=== PATIENT | male | born 1960 | race Caucasian/White ===

== ENCOUNTER 2019-01-17 16:16 | Inpatient (IN) | payer MEDICARE, MEDICAID ==
[~2019-01-17] VITALS: Ht 182.9 cm; Wt 62.8 kg
[~2019-01-17 16:16] MED LIST: ASPI-1393 PO; LISI10TA5 PO; METF-414 PO; RIVA10TA PO
[2019-01-17] MEDS ORDERED: SODIUM CHLORIDE 0.9% 1,000 ML IV ONE (16:41)
[2019-01-17 17:48] LABS: BASOPHILS % 1.2 % (0.0-2.0); EOSINOPHILS % 0.7 % (0.0-5.0); HEMATOCRIT. 31.8 % (42.0-52.0); MEAN CORPUSCULAR HEMOGLOBIN 26.3 pg (28.0-32.0); MEAN CORPUSCULAR VOLUME 83.4 fL (80.0-94.0); MEAN PLATELET VOLUME 8.5 fl (7.4-10.4); MONOCYTES % 9.9 % (2.0-8.0); NEUTROPHILS % 67.2 % (40.0-76.0); PLATELET 237 x1000/uL (130-400); RED BLOOD CELL COUNT 3.82 mill/uL (4.7-6.1); RED CELL DISTRIBUTION WIDTH 16.7 % (11.6-14.6)
[2019-01-17 17:53] LABS: CHLORIDE 103 mEq/L (98-107)
[2019-01-17 17:55] LABS: INR 1.3; PROTHROMBIN TIME 12.7 sec (9.6-11.0)
[2019-01-17] MEDS ORDERED: LORAZEPAM 1MG TABLET PO ONE (18:30)
[2019-01-17 19:03] LABS: CLARITY URINE CLEAR (CLEAR); COLOR URINE DARK YELLOW (YELLOW); KETONES URINE TRACE (NEGATIVE); LEUKOCYTE ESTERASE URINE NEGATIVE (NEGATIVE); NITRITE URINE NEGATIVE (NEGATIVE); OCCULT BLOOD URINE NEGATIVE (NEGATIVE); PH URINE 5.5 (4.5-8.0); PROTEIN URINE 2+ (NEGATIVE); SPECIFIC GRAVITY URINE 1.032 (1.005-1.030)
[2019-01-17 20:30] VITALS: BP 135/72
[2019-01-17] MEDS ORDERED: DOCUSATE SODIUM 100MG CAPSULE PO PRN (21:00)
[2019-01-17] MEDS ORDERED: LORAZEPAM 0.5MG TABLET PO PRN (21:00)
[2019-01-17] MEDS ORDERED: IPRATROPIUM/ALBUTEROL 0.5-3(2.5)MG/3ML NEB HHN PRN (21:00)
[2019-01-17] MEDS ORDERED: CLONIDINE 0.1MG TABLET PO PRN (21:00)
[2019-01-17] MEDS ORDERED: HYDROCODONE/ACETAMINOPHEN 5/325MG TABLET PO PRN (21:00)
[2019-01-17] MEDS: ONDANSETRON HCL 4MG/2ML INJ IV PRN (21:32)
[2019-01-17] MEDS ORDERED: DEXTROSE 50% WATER 50ML SYRINGE IV PRN (22:30)
[2019-01-17] MEDS ORDERED: CARV3.1242 PO (23:33)
[2019-01-18] VITALS: BP 104/65
[2019-01-18] MEDS: ACETAMINOPHEN 325MG TABLET PO PRN ×2 (00:23→19:04)
[2019-01-18 04:00] VITALS: BP_SYST 100; BP_SYST 104; BP_SYST 93; BP_DIAS 50; BP_DIAS 51; BP_DIAS 52
[2019-01-18 04:58] LABS: *AMPHETAMINES SCREEN URINE NEGATIVE (NEGATIVE); *BARBITURATES SCREEN URINE NEGATIVE (NEGATIVE); *BENZODIAZEPINES SCREEN URINE NEGATIVE (NEGATIVE); *COCAINE SCREEN URINE NEGATIVE (NEGATIVE); CANNABINOID URINE SCREEN NEGATIVE (NEGATIVE); METHADONE URINE SCREEN NEGATIVE (NEGATIVE); OPIATES URINE SCREEN NEGATIVE (NEGATIVE); PHENCYCLIDINE URINE SCREEN NEGATIVE (NEGATIVE)
[2019-01-18] MEDS: BLOOD SUGAR DIAGNOSTIC STRIP TEST SCH ×4 (06:26→21:41)
[2019-01-18] MEDS: INSULIN LISPRO 100 UNITS/ML SUBCUT SCH ×4 (06:27→21:00)
[2019-01-18 06:39] LABS: EOSINOPHILS % 0.6 % (0.0-5.0); HEMOGLOBIN. 9.4 g/dL (14.0-18.0); LYMPHOCYTES % 19.7 % (20.0-50.0); MEAN CORPUSCULAR HEMOGLOBIN 26.6 pg (28.0-32.0); MEAN CORPUSCULAR VOLUME 81.9 fL (80.0-94.0); MEAN PLATELET VOLUME 8.5 fl (7.4-10.4); NEUTROPHILS % 65.7 % (40.0-76.0); PLATELET 197 x1000/uL (130-400); RED BLOOD CELL COUNT 3.54 mill/uL (4.7-6.1)
[2019-01-18 08:00] VITALS: BP 101/60
[2019-01-18 08:13] LABS: CHLORIDE 104 mEq/L (98-107)
[2019-01-18 12:00] VITALS: BP_SYST 100; BP_SYST 102; BP_SYST 91; BP_DIAS 59; BP_DIAS 62; BP_DIAS 70
[2019-01-18] MEDS ORDERED: INFLUENZA VIRUS VACCINE(AFLURIA) 0.5ML SYR IM ONE (12:00)
[2019-01-18 16:00] VITALS: BP 98/61
[2019-01-18 16:17] LABS: FERRITIN 22 ng/mL (22-322)
[2019-01-18 16:28] LABS: HEPATITIS B SURFACE ANTIGEN NEGATIVE
[2019-01-18 16:58] LABS: HEPATITIS A AB IGM NEGATIVE (NEGATIVE)
[2019-01-18 17:18] LABS: TOTAL IRON BINDING CAPACITY 323 ug/dL (250-450)
[2019-01-18 20:00] VITALS: BP 100/62
[2019-01-18] MEDS: ONDANSETRON HCL 4MG/2ML INJ IV PRN (22:06)
[2019-01-19] VITALS: BP 101/72
[2019-01-19] MEDS: ACETAMINOPHEN 325MG TABLET PO PRN ×2 (02:21→21:39)
[2019-01-19 04:00] VITALS: BP 97/59
[2019-01-19] MEDS: BLOOD SUGAR DIAGNOSTIC STRIP TEST SCH ×4 (06:17→21:34)
[2019-01-19] MEDS: ONDANSETRON HCL 4MG/2ML INJ IV PRN ×2 (06:17→14:29)
[2019-01-19] MEDS: OMEPRAZOLE 20MG CAPSULE EXTENDED RELEASE PO SCH (06:17)
[2019-01-19] MEDS: INSULIN LISPRO 100 UNITS/ML SUBCUT SCH ×4 (06:24→21:00)
[2019-01-19 07:27] LABS: BASOPHILS % 0.9 % (0.0-2.0); EOSINOPHILS % 1.1 % (0.0-5.0); HEMATOCRIT. 30.8 % (42.0-52.0); HEMOGLOBIN. 10.1 g/dL (14.0-18.0); LYMPHOCYTES % 14.8 % (20.0-50.0); MEAN CORPUSCULAR HEMOGLOBIN 26.8 pg (28.0-32.0); MEAN CORPUSCULAR VOLUME 81.8 fL (80.0-94.0); MEAN PLATELET VOLUME 8.6 fl (7.4-10.4); MONOCYTES % 12.7 % (2.0-8.0); NEUTROPHILS % 70.5 % (40.0-76.0); PLATELET 224 x1000/uL (130-400); RED BLOOD CELL COUNT 3.76 mill/uL (4.7-6.1); RED CELL DISTRIBUTION WIDTH 16.8 % (11.6-14.6)
[2019-01-19 07:40] LABS: CHLORIDE 102 mEq/L (98-107)
[2019-01-19 08:00] VITALS: BP 120/75
[2019-01-19] MEDS: MIDODRINE HCL 2.5MG TABLET PO SCH ×3 (10:00→16:47)
[2019-01-19] MEDS: SUCRALFATE 1 G/10 ML UDC PO SCH ×3 (11:45→21:39)
[2019-01-19 12:00] VITALS: BP 116/64
[2019-01-19 12:09] LABS: T4 FREE 1.47 ng/dL (0.76-1.46)
[2019-01-19] MEDS ORDERED: FERR325T6 MT (12:49)
[2019-01-19] MEDS ORDERED: MIDO2.5T PO (12:49)
[2019-01-19] MEDS ORDERED: OMEP20CA5 PO (12:49)
[2019-01-19 15:59] LABS: CREATINE KINASE 28 IU/L (39-308)
[2019-01-19 16:00] VITALS: BP 123/75
[2019-01-19 16:00] LABS: CREATINE KINASE MB FRACTION < 1.0 ng/mL (0.5-3.6)
[2019-01-19] MEDS: IRON SUCROSE COMPLEX 100 MG/5 ML ML IV SCH (16:48)
[2019-01-19 20:00] VITALS: BP 109/63
[2019-01-20 00:08] VITALS: BP 102/60
[2019-01-20] MEDS: ONDANSETRON HCL 4MG/2ML INJ IV PRN (00:14)
[2019-01-20 00:19] LABS: CREATINE KINASE 26 IU/L (39-308); CREATINE KINASE MB FRACTION < 1.0 ng/mL (0.5-3.6)
[2019-01-20 04:00] VITALS: BP 108/64
[2019-01-20] MEDS: BLOOD SUGAR DIAGNOSTIC STRIP TEST SCH ×2 (05:53→12:29)
[2019-01-20] MEDS: OMEPRAZOLE 20MG CAPSULE EXTENDED RELEASE PO SCH (06:10)
[2019-01-20] MEDS: SUCRALFATE 1 G/10 ML UDC PO SCH ×2 (06:10→12:28)
[2019-01-20] MEDS: INSULIN LISPRO 100 UNITS/ML SUBCUT SCH ×2 (06:18→12:15)
[2019-01-20 07:37] LABS: BASOPHILS % 1.2 % (0.0-2.0); EOSINOPHILS % 1.5 % (0.0-5.0); HEMATOCRIT. 31.4 % (42.0-52.0); HEMOGLOBIN. 10.3 g/dL (14.0-18.0); LYMPHOCYTES % 8.8 % (20.0-50.0); MEAN CORPUSCULAR HEMOGLOBIN 26.6 pg (28.0-32.0); MEAN PLATELET VOLUME 8.4 fl (7.4-10.4); MONOCYTES % 14.8 % (2.0-8.0); NEUTROPHILS % 73.7 % (40.0-76.0); PLATELET 207 x1000/uL (130-400); RED BLOOD CELL COUNT 3.87 mill/uL (4.7-6.1); RED CELL DISTRIBUTION WIDTH 16.6 % (11.6-14.6)
[2019-01-20 08:00] VITALS: BP 107/56
[2019-01-20 08:11] LABS: CHLORIDE 103 mEq/L (98-107)
[2019-01-20 08:20] LABS: CREATINE KINASE 24 IU/L (39-308)
[2019-01-20 08:22] LABS: CREATINE KINASE MB FRACTION < 1.0 ng/mL (0.5-3.6)
[2019-01-20] MEDS: IRON SUCROSE COMPLEX 100 MG/5 ML ML IV SCH (09:05)
[2019-01-20] MEDS: MIDODRINE HCL 2.5MG TABLET PO SCH (09:05)
[2019-01-20] MEDS ORDERED: DOCUSATE SODIUM 100MG CAPSULE PO SCH (09:30)
[2019-01-20 12:56] VITALS: BP 110/62
[2019-01-20 13:07] LABS: HIV SCREEN 4G Non Reactive (Non Reactive)
== END 2019-01-20 15:02 | disposition home or self-care (01) | DRG 641 ==
LOC: ER 16:16 → EDBEDREQ 16:45 → 5WST 18:40 → EDBEDREQTM 18:43 → EDBEDREQ 18:43 → ENRESERV 19:21
PROVIDERS: ADMIT Internal Medicine; ATTEND Internal Medicine
DX: E86.0 Dehydration (principal); I50.22 Chronic systolic (congestive) heart failure; I42.9 Cardiomyopathy, unspecified; R18.8 Other ascites; I11.0 Hypertensive heart disease with heart failure; D63.8 Anemia in other chronic diseases classified elsewhere; E11.9 Type 2 diabetes mellitus without complications; I25.10 Atherosclerotic heart disease of native coronary artery without angina pectoris; N40.0 Benign prostatic hyperplasia without lower urinary tract symptoms; I35.0 Nonrheumatic aortic (valve) stenosis; D50.9 Iron deficiency anemia, unspecified; R16.0 Hepatomegaly, not elsewhere classified; D72.821 Monocytosis (symptomatic); R80.9 Proteinuria, unspecified; R82.4 Acetonuria; H54.8 Legal blindness, as defined in USA; Z90.49 Acquired absence of other specified parts of digestive tract; Z86.73 Personal history of transient ischemic attack (TIA), and cerebral infarction without residual deficits; Z79.82 Long term (current) use of aspirin; Z95.810 Presence of automatic (implantable) cardiac defibrillator; Z79.84 Long term (current) use of oral hypoglycemic drugs; Z79.899 Other long term (current) drug therapy
CPT/HCPCS: 36415; 71045; 74176; 76700; 78582; 80048; 80061; 80076; 80305; 81003; 82150; 82270; 82550; 82553; 82728; 82962; 83036; 83540; 83550; 83605; 83735; 83880; 84439; 84443; 84484; 85379; 86705; 86709; 86803; 87340; 87389; 90686; 93005; 93306; 93880; 93970; 99285; A9558; J2405; J7030